=== PATIENT | male | born 1995 | race African-American/Black ===

== ENCOUNTER 2018-03-31 16:54 | Emergency (ER) | payer OTHER, BC ==
[~2018-03-31] VITALS: Ht 180.3 cm; Wt 75.0 kg
[2018-03-31 17:46] LABS: HEMATOCRIT 47.4 % (39.0-50.0); HEMOGLOBIN 16.3 g/dl (14.0-18.0); IMMATURE GRANULOCYTES 0.2 % (0.0-1.0); MEAN CELL VOLUME 86.7 fL CALC (80.0-100.0); MEAN CORPUSCULAR HGB 29.8 pG CALC (26.0-32.0); MEAN CORPUSCULAR HGB CONC 34.4 g/L CALC (32.0-36.0); NEUT# 4.58 thou/uL (1.82-7.42); RED BLOOD COUNT 5.47 mill/uL (4.70-6.10)
[2018-03-31 18:13] LABS: ANION GAP 15 (6-22 (CALC)); BUN 13 mg/dL (9-20); BUN/CREATININE RATIO 13 (12-20 (CALC)); CARBON DIOXIDE 24 mmol/l (22-30); CHLORIDE 104 mmol/l (95-108); GFR > 60 ML/MIN (>=60 (CALC)); GFR FOR AFR.AMER. > 60 ML/MIN (>=60 (CALC)); SODIUM 140 mmol/l (137-146)
[2018-03-31] MEDS ORDERED: IBUPROFEN600 MG PO (19:29)
[2018-03-31 19:35] VITALS: BP 131/74
== END 2018-03-31 19:35 | disposition home or self-care (01) | DRG 923 ==
LOC: ED 16:54
DX: Z04.1 Encounter for examination and observation following transport accident (principal); V43.62XA Car passenger injured in collision with other type car in traffic accident, initial encounter; Y92.414 Local residential or business street as the place of occurrence of the external cause